=== PATIENT | female | born 1945 | race Caucasian/White ===

== ENCOUNTER 2020-02-08 22:53 | Emergency (ER) | payer MEDICARE, BC, SELFPAY ==
[2020-02-08 22:56] VITALS: BP 95/69; PULSE 198; RESP 20; TEMP 36; O2SAT 99; BMI 25.4
--- NOTE | 2020-02-08 23:03 | ED.RN ---
NO OLD EKGS IN MUSE
[2020-02-08] MEDS: Adenosine 6 MG/2 ML Syringe IV (23:09)
[2020-02-08] MEDS: Adenosine 6 MG/2 ML Syringe 12 MG IV (23:13)
[2020-02-08 23:15] VITALS: BP 123/86; PULSE 95; RESP 20; O2SAT 100
[2020-02-08] MEDS: 0.9% Normal Saline 1,000 ML 999 ML IV (23:16)
--- NOTE | 2020-02-08 23:21 | EKG12_ITS ---
Test Reason : SVT Blood Pressure : / mmHG Vent. Rate : 090 BPM Atrial Rate : 090 BPM P-R Int : 180 ms QRS Dur : 088 ms QT Int : 400 ms P-R-T Axes : 046 061 018 degrees QTc Int : 489 ms Normal sinus rhythm Nonspecific ST and T wave abnormality Abnormal ECG Confirmed by JOSUE SAM, SYEDA ([id number]), news copy editor WALTER FERNANDEZ ([id number]) on 02/11/2020 11:23:02 AM Referred By: LEAH Confirmed By:SYEDA SALAS MD
--- NOTE | 2020-02-08 23:22 | EKG12_ITS ---
Test Reason : SVT Blood Pressure : / mmHG Vent. Rate : 197 BPM Atrial Rate : 113 BPM P-R Int : 000 ms QRS Dur : 090 ms QT Int : 232 ms P-R-T Axes : 000 061 251 degrees QTc Int : 420 ms Supraventricular tachycardia Marked ST abnormality, possible inferolateral subendocardial injury Abnormal ECG Confirmed by JOSUE SAM, SYEDA ([id number]), social media editor WALTER FERNANDEZ ([id number]) on 02/11/2020 11:23:15 AM Referred By: LEAH Confirmed By:SYEDA SALAS MD
--- NOTE | 2020-02-08 23:28 | RAD_ITS ---
HISTORY: dizziness. HR in 200s in triage. ablation a couple months ago, EXAMINATION/TECHNIQUE: Chest 1 View: . Portable upright COMPARISON: None FINDINGS: Cardiac telemetry leads in place. Normal heart size. No focal infiltrate. Right basilar small calcified granuloma. No vascular congestion or pleural effusion. No pneumothorax. The bony thorax appears intact. RAD/Chest 1 View (Portable) IMPRESSION: No acute cardiopulmonary disease. at 0025 Reported and signed by: Mich Kim MD Electronically Signed: Mich Kim, at 0:24 EDT Tel , Service support ,
[2020-02-08 23:30] VITALS: PULSE 91; RESP 18; O2SAT 99
--- NOTE | 2020-02-08 23:31 | ED.VISSUMM ---
- ER Visit Summary Date of Service: 02/08/20 Chief Complaint: Palpitations History of Present Illness: The patient is a 74 F who presents with palpitations and tachycardia that began tonight. Patient states she felt like her heart was racing. Patient admits to some dizziness. Patient denies any shortness of breath. Patient admits to some tightness in her chest and throat. Patient denies any cough. Patient denies any nausea or vomiting. Patient denies any fevers or chills. Patient has a history of SVT and had a cardiac ablation earlier this year. Patient is visiting from [place]. Physical Examination: Vital signs are stable except for tachycardia of 198. Patient is afebrile. Patient is in no acute distress. Oral mucosa is pink and moist. Neck is supple. Trachea is midline. There is no JVD. Heart was regular and tachycardic. Lungs are clear and equal bilaterally. Abdomen is soft. Bowel sounds are normal. There is no tenderness. Cranial nerves II through XII are intact. There are no focal motor or sensory deficits. Test Results: Initial EKG showed supraventricular tachycardia with a rate of 197. There are nonspecific ST-T wave changes noted. There are no prior EKGs available for comparison. CBC and comprehensive metabolic profile were obtained and were essentially within normal limits. Troponin was normal. TSH was elevated at 18.8. Chest x-ray was obtained. There is no acute cardiopulmonary process. This was interpreted by the radiologist and reviewed by myself. Emergency Department Course and Treatment: Patient was given adenosine 6 mg with no change in her heart rate. Patient was given adenosine 12 mg and she converted back to normal sinus rhythm. Repeat EKG was done and showed a normal sinus rhythm with a rate of 90. There are no acute ST or T wave changes noted. Patient was given aspirin here. Patient was given IV fluids. Patient is feeling better on reevaluation. Patient was instructed to take 2 tablets of her Synthroid until she is rechecked. Patient was instructed to follow-up with her primary care physician in 3 to 5 days. Patient understood and was agreeable with the plan. All questions were answered. Disposition: Discharge home Impression: 1. Supraventricular tachycardia 2. Hypothyroidism This note was generated with [employer]ation software. It may contain incorrect words, spelling, and punctuation that were not noted in review of the chart prior to signing ED Disposition - Plan for ED Patient: Disposition: Home or Assisted Living Diagnosis: Supraventricular tachycardia, Hypothyroidism Instructions: ED Tachycardia PAT, ED Hypothyroidism Referrals: Town Doctor,Out of [NON-STAFF] - 5-7 Days Additional Instructions: Take 2 tablets of your thyroid medicine daily until you are rechecked.
[2020-02-08] MEDS: Aspirin 81 MG TAB.CHEW 324 MG PO (23:41)
[2020-02-08 23:47] LABS: Anion Gap 8 (5-15); BUN 30 mg/dL (7-18); BUN/Creat Ratio 24.8 RATIO (10-20); Calcium,Total 8.9 mg/dL (8.5-10.1); Chloride 108 mmol/L (98-107); Creatinine, Serum 1.21 mg/dL (0.55-1.02); EST Glomerular Filtration Rate 46 mL/min (>60); Est Glom Filt Rate - Afr Amer 56 mL/min (>60); Estimated Creatinine Clearance 34.25 ml/min; Glucose 148 mg/dL (74-106); Potassium 3.3 mmol/L (3.5-5.1); Sodium Level 142 mmol/L (136-145)
[2020-02-08 23:49] LABS: Absolute Lymphocyte Count 3.38 X10^3/uL (0.83-4.51); Absolute Neutrophil Count 2.6 X10^3/uL (2.0-7.7); Basophil# 0.17 X10^3/uL; Basophil% 2.4 % (0-1); Eosinophil# 0.19 X10^3/uL; Eosinophils% 2.6 % (0-5); Hematocrit 44.1 % (37-47); Lymphocyte # 3.38 X10^3/ul (4.0); Lymphocyte % 47.1 % (19-41); Mean Corp Hgb Conc 31.7 g/dL (32-36); Mean Corpuscular Hgb 28.7 pg (27.0-32.0); Mean Corpuscular Volume 90.6 fL (81-99); Mean Platelet Vol. 11.5 fl (6.2-12.0); Monocyte# 0.79 X10^3/uL; NRBC Flagged by Analyzer 0 % (0-5); Neutrophil # 2.64 X10^3/uL (2.7-7.7); Neutrophil % 36.8 % (47-70); Platelet Count 204 K/mm3 (150-450); RBC Distribution Width CV 12.2 % (11.6-14.6); RBC Distribution Width SD 40.7 fl (35.1-43.9); Red Blood Count 4.87 M/mm3 (4.2-5.4); White Blood Count 7.2 K/mm3 (4.4-11.0)
[2020-02-09 00:34] VITALS: BP 104/78; PULSE 81; RESP 18; O2SAT 97
[2020-02-09 00:53] VITALS: BP 104/78; PULSE 81; RESP 16; O2SAT 97
== END 2020-02-09 00:56 | disposition home or self-care (01) ==
PROVIDERS: Emergency Provider Emergency Medicine
DX: I47.1 Supraventricular tachycardia (principal); E03.9 Hypothyroidism, unspecified
CPT/HCPCS: 71045; 80048; 84443; 84484; 85025; 93005; 96361; 96374; 96375; 99285; J7030; A4216; J0153

== ENCOUNTER 2020-07-20 00:50 | Emergency (ER) | payer MEDICARE, BC, SELFPAY ==
[2020-07-20 00:53] VITALS: BP 82/49; PULSE 185; RESP 31; TEMP 36.1; O2SAT 98; BMI 24.5
[2020-07-20] MEDS: Adenosine 6 MG/2 ML Syringe 12 MG IV ×2 (00:55→00:58)
--- NOTE | 2020-07-20 00:58 | ED.RN ---
0055 - 12mg adenosine given, 0058 - 12mg adenosine
--- NOTE | 2020-07-20 01:00 | EKG12_ITS ---
Test Reason : CONVERSION Blood Pressure : / mmHG Vent. Rate : 073 BPM Atrial Rate : 073 BPM P-R Int : 184 ms QRS Dur : 086 ms QT Int : 440 ms P-R-T Axes : 077 064 048 degrees QTc Int : 484 ms Normal sinus rhythm Normal ECG Confirmed by JOSUE SAM, SYEDA ([id number]), editor sound KYUNG DAVE ([id number]) on 07/20/2020 2:27:49 PM Referred By: Confirmed By:SYEDA SALAS MD
[2020-07-20] MEDS: fentaNYL 100 MCG/2 ML Ampul 25 MCG IV (01:03)
[2020-07-20] MEDS: Etomidate 20 MG/10 ML Vial 10 MG IV (01:03)
[2020-07-20 01:07] VITALS: BP 85/51; PULSE 88; RESP 17; O2SAT 96
[2020-07-20 01:09] VITALS: BP 82/69
[2020-07-20 01:10] LABS: Absolute Lymphocyte Count 3.52 X10^3/uL (0.83-4.51); Absolute Neutrophil Count 4.4 X10^3/uL (2.0-7.7); Basophil# 0.19 X10^3/uL; Basophil% 2.1 % (0-1); Eosinophil# 0.27 X10^3/uL; Hematocrit 43.2 % (37-47); Hemoglobin 13.9 g/dL (12.0-15.0); Lymphocyte # 3.52 X10^3/ul (4.0); Lymphocyte % 39.4 % (19-41); Mean Corp Hgb Conc 32.2 g/dL (32-36); Mean Corpuscular Hgb 28.8 pg (27.0-32.0); Mean Corpuscular Volume 89.6 fL (81-99); Mean Platelet Vol. 11.6 fl (6.2-12.0); Monocyte# 0.55 X10^3/uL; Monocyte% 6.2 % (0-10); NRBC Flagged by Analyzer 0 % (0-5); Neutrophil # 4.38 X10^3/uL (2.7-7.7); Neutrophil % 49.1 % (47-70); Platelet Count 208 K/mm3 (150-450); RBC Distribution Width CV 12.5 % (11.6-14.6); RBC Distribution Width SD 40.9 fl (35.1-43.9); Red Blood Count 4.82 M/mm3 (4.2-5.4); White Blood Count 8.9 K/mm3 (4.4-11.0)
--- NOTE | 2020-07-20 01:16 | ED.DCSUM_ITS ---
History of Present Illness Chief Complaint: Palpitations Informant: Patient Narrative: 74-year-old female with a history of hypothyroidism and SVT status post ablation states that approximately 2300 hrs. she went into a tachycardic rhythm. She states she feels very lightheaded and nauseous. She tried various vagal maneuvers with no relief. She is visiting from [place]. She notes that she has had success with adenosine in the past. Past Medical History - Allergies and Home Meds Allergies/Adverse Reactions: Allergies navid Adverse Reaction (Verified 02/08/20 23:04) Food Allergy Primary Care Physician: Care Physician,No Primary [Primary Care Provider] - Past Medical History: - - Hypothyroidism SVT Surgical History: noncontributory Lives: Spouse/ Significant Other Smoking Status: Never smoker Drugs: None Review of Systems General: Reports: Malaise. Denies: Chills, Fever, Sweats Eyes: Denies: Visual changes - bilaterally, Diplopia ENT: Denies: Rhinorrhea, Sore throat Cardiovascular: Reports: Palpitations, Heart racing. Denies: Chest pain Respiratory: Denies: Dyspnea, Cough, Dyspnea on exertion Gastrointestinal: Reports: Nausea. Denies: Abdominal pain, Vomiting, Diarrhea, Melena, Hematochezia Genitourinary: Denies: Dysuria, Hematuria, Frequency Musculoskeletal: Denies: Back pain, Extremity Pain Skin: Denies: Rash, Wounds Neurological: Denies: Headache, Weakness, Numbness Physical Exam Vital Signs/Narrative: Vital Signs Temp Pulse Resp BP Pulse Ox 07/20/20 01:09 82/69 L 07/20/20 01:07 88 17 85/51 L 96 07/20/20 00:53 97 F L 185 H 31 H 82/49 L 98 Inital Vital Signs reviewed: Yes General: Well nourished, Well developed, - - Patient appears weak pale Head: Normocephalic, Atraumatic Eyes: Perrl, EOMI ENT: Moist mucous membranes, No rhinorrhea Neck: Supple, Nontender Cardiovascular: Regular rate, No murmurs, Tachycardia Respiratory: No distress, CTA bilaterally, Chest nontender Abdomen: Soft, Nontender, Nondistended, Normal bowel sounds Back: Nontender, Normal Inspection Extremities: Nontender, No edema Skin: No rash, Diaphoresis, Pallor, - - Patient has cool extremities Neurological: Alert, Oriented x3, Cranial nerves II-XII grossly intact, Normal Strength, Normal Sensation Psychological: Normal affect, Normal Mood Diagnostic/Tx/Re-eval Laboratory Last Values WBC 8.9 K/mm3 (4.4-11.0) 07/20/20 00:55 RBC 4.82 M/mm3 (4.2-5.4) 07/20/20 00:55 Hgb 13.9 g/dL (12.0-15.0) 07/20/20 00:55 Hct 43.2 % (37-47) 07/20/20 00:55 MCV 89.6 fL (81-99) 07/20/20 00:55 MCH 28.8 pg (27.0-32.0) 07/20/20 00:55 MCHC 32.2 g/dL (32-36) 07/20/20 00:55 RDW Std Deviation 40.9 fl (35.1-43.9) 07/20/20 00:55 RDW Coeff of Reji 12.5 % (11.6-14.6) 07/20/20 00:55 Plt Count 208 K/mm3 (150-450) 07/20/20 00:55 MPV 11.6 fl (6.2-12.0) 07/20/20 00:55 Immature Gran % (Auto) 0.200 % (0.0-0.9) 07/20/20 00:55 Neut % (Auto) 49.1 % (47-70) 07/20/20 00:55 Lymph % (Auto) 39.4 % (19-41) 07/20/20 00:55 Kimble % (Auto) 6.2 % (0-10) 07/20/20 00:55 Eos % (Auto) 3.0 % (0-5) 07/20/20 00:55 Baso % (Auto) 2.1 % (0-1) H 07/20/20 00:55 Absolute Neuts (auto) 4.4 X10^3/uL (2.0-7.7) 07/20/20 00:55 Absolute Lymphs (auto) 3.52 X10^3/uL (0.83-4.51) 07/20/20 00:55 Nucleated RBC % 0 % (0-5) 07/20/20 00:55 Sodium 140 mmol/L (136-145) 07/20/20 00:55 Potassium 3.0 mmol/L (3.5-5.1) L 07/20/20 00:55 Chloride 106 mmol/L (98-107) 07/20/20 00:55 Carbon Dioxide 24.0 mmol/L (21.0-32.0) 07/20/20 00:55 Anion Gap 10 (5-15) 07/20/20 00:55 BUN 29 mg/dL (7-18) H 07/20/20 00:55 Creatinine 1.31 mg/dL (0.55-1.02) H 07/20/20 00:55 Estim Creat Clear Calc 34.42 ml/min 07/20/20 00:55 Est GFR (MDRD) Af Amer 51 mL/min (>60) L 07/20/20 00:55 Est GFR (MDRD) Non-Af 42 mL/min (>60) L 07/20/20 00:55 BUN/Creatinine Ratio 22.1 RATIO (10-20) H 07/20/20 00:55 Glucose 224 mg/dL (74-106) H 07/20/20 00:55 Calcium 9.2 mg/dL (8.5-10.1) 07/20/20 00:55 Magnesium 2.1 mg/dL (1.6-2.6) 07/20/20 00:55 Total Bilirubin 0.40 mg/dL (0.20-1.00) 07/20/20 00:55 AST 168 U/L (15-37) H 07/20/20 00:55 ALT 191 U/L (13-56) H 07/20/20 00:55 Alkaline Phosphatase 135 U/L (45-117) H 07/20/20 00:55 Total Protein 6.9 g/dL (6.4-8.2) 07/20/20 00:55 Albumin 3.5 g/dL (3.2-5.0) 07/20/20 00:55 Globulin 3.4 g/dL (2.2-4.2) 07/20/20 00:55 Albumin/Globulin Ratio 1.0 RATIO (0.9-2.4) 07/20/20 00:55 TSH 15.10 uIU/mL (0.358-3.74) H 07/20/20 00:55 - Medical Decision Making Patient did not convert with (2) 12 mg doses of adenosine. Because she was hypotensive with evidence of hypoperfusion she provided verbal consent for emergent electrical cardioversion. She received etomidate and fentanyl. A angle 200 J synchronized shock was delivered resulting in conversion to a sinus arrhythmia. She was allowed to recover. Patient had nausea and was given Zofran. Noted potassium at 3 and she received oral potassium receive a prescription for the same. TSH was noted to be 15. She will be given a copy of her labs and EKGs to take back with her to [place]. ED Disposition - Plan for ED Patient: Disposition: Home or Assisted Living Diagnosis: SVT (supraventricular tachycardia), Hypokalemia, TSH elevation Instructions: ED About Arrhythmias Prescriptions: Potassium Chloride Oral Tablet [K-Dur] 20 meq PO DAILY 6 Days #6 tab Prescription Printed Additional Instructions: Please follow-up with your primary care physician and your superintendent marine
--- NOTE | 2020-07-20 01:23 | EKG12_ITS ---
Test Reason : CP Blood Pressure : / mmHG Vent. Rate : 184 BPM Atrial Rate : 184 BPM P-R Int : 116 ms QRS Dur : 094 ms QT Int : 256 ms P-R-T Axes : 061 054 248 degrees QTc Int : 448 ms Supraventricular Tachycardia Marked ST abnormality, possible inferior subendocardial injury Marked ST abnormality, possible anterolateral subendocardial injury Abnormal ECG Confirmed by JOSUE SAM, SYEDA ([id number]), research editor KYUNG DAVE ([id number]) on 07/20/2020 2:29:17 PM Referred By: PARRISH Confirmed By:SYEDA SALAS MD
[2020-07-20 01:31] LABS: AST(SGOT) 168 U/L (15-37); Alanine Aminotransfer ALT/SGPT 191 U/L (13-56); Albumin, Serum 3.5 g/dL (3.2-5.0); Alkaline Phosphatase 135 U/L (45-117); Anion Gap 10 (5-15); BUN 29 mg/dL (7-18); BUN/Creat Ratio 22.1 RATIO (10-20); Calcium,Total 9.2 mg/dL (8.5-10.1); Chloride 106 mmol/L (98-107); Creatinine, Serum 1.31 mg/dL (0.55-1.02); EST Glomerular Filtration Rate 42 mL/min (>60); Est Glom Filt Rate - Afr Amer 51 mL/min (>60); Estimated Creatinine Clearance 34.42 ml/min; Globulin 3.4 g/dL (2.2-4.2); Glucose 224 mg/dL (74-106); Magnesium 2.1 mg/dL (1.6-2.6); Protein, Total 6.9 g/dL (6.4-8.2); Sodium Level 140 mmol/L (136-145)
[2020-07-20 02:06] VITALS: BP 77/65; PULSE 84; RESP 18; O2SAT 99
[2020-07-20] MEDS: Ondansetron 4 MG/2 ML Vial IV (02:06)
[2020-07-20] MEDS: Potassium Chloride Oral Tablet 20 MEQ 40 MEQ PO (03:08)
[2020-07-20 03:09] VITALS: BP 108/70; PULSE 81; RESP 18; O2SAT 99
== END 2020-07-20 03:10 | disposition home or self-care (01) ==
PROVIDERS: Emergency Provider Emergency Medicine
DX: I47.1 Supraventricular tachycardia (principal); E87.6 Hypokalemia; R94.6 Abnormal results of thyroid function studies
CPT/HCPCS: 80053; 83735; 84443; 85025; 92960; 93005; 96374; 96375; 96376; 99284; J7030; A4216; J0153; J2405